=== PATIENT | female | born 1955 | race Caucasian/White ===

== ENCOUNTER → 2016-11-27 | Outpatient (CLI) | payer BC ==
[2016-11-27 13:14] LABS: BASO % 0.6 %; BASO ABS # 0.04 K/uL (0-0.2); COMPLETE YES; EOS % 3.6 %; HEMATOCRIT 42.4 % (37-47); IG% 0.3 %; LYMPH % 31.4 %; LYMPH ABS # 2.28 K/uL (1.2-3.4); MEAN CELL VOLUME 94.2 fL (80-100); MEAN CORPUSCULAR HEMOGLOBIN 32.2 pg (25-34); MEAN CORPUSCULAR HGB CONC 34.2 g/dl (32-36); MEAN PLATELET VOLUME 9.1 fL (7.4-10.4); MONO % 9.2 %; NEUT % 54.9 %; PLATELET COUNT 407 K/uL (130-400); WHITE BLOOD COUNT 7.26 K/uL (4.8-10.8)
[2016-11-27 13:35] LABS: ALT/SGPT 25 U/L (12-78); AST/SGOT 20 U/L (15-37); BLOOD UREA NITROGEN 11 mg/dl (7-18); BUN/CREATININE RATIO 12.9 (10-20); CALCIUM 9.5 mg/dl (8.5-10.1); CARBON DIOXIDE 26 mmol/L (21-32); CHLORIDE 104 mmol/L (98-107); CREATININE 0.84 mg/dl (0.60-1.20); GLUCOSE 93 mg/dl (70-99); POTASSIUM 4.4 mmol/L (3.5-5.1); SODIUM 139 mmol/L (136-145)
[2016-11-27 13:42] LABS: URINE APPEARANCE CLEAR (CLEAR); URINE BILIRUBIN NEG (NEG); URINE COLOR YELLOW; URINE NITRITE NEG (NEG); URINE SPECIFIC GRAVITY 1.008 (1.000-1.030); UROBILINOGEN NEG (NEG)
[2016-11-27 13:46] LABS: ALB/GLOB RATIO 1.3 (0.9-2); ALKALINE PHOSPHATASE 118 U/L (45-117); CHOLESTEROL 319 mg/dl (0-200); CHOLESTEROL/HDL RATIO 3.4; HDL CHOLESTEROL 95 mg/dl; LDL CHOLESTEROL CALCULATED 208 mg/dl; TRIGLYCERIDES 79 mg/dl (0-150); VERY LOW DENSITY LIPOPROT CALC 16 mg/dl
[2016-11-27 13:51] LABS: MANUAL MICROSCOPIC REQUIRED? NO; REVIEW REQ? NO
== END | disposition home or self-care (01) ==
LOC: C.LABMFLN 08:18
PROVIDERS: ATTEND Physician Assistant
DX: Z00.00 Encounter for general adult medical examination without abnormal findings (principal); I10 Essential (primary) hypertension; I73.9 Peripheral vascular disease, unspecified; E78.5 Hyperlipidemia, unspecified

== ENCOUNTER → 2017-05-08 | Outpatient (CLI) | payer BC ==
[2017-05-08 13:10] LABS: BASO % 0.7 %; BASO ABS # 0.05 K/uL (0-0.2); COMPLETE YES; HEMATOCRIT 39.6 % (37-47); IG% 0.4 %; LYMPH % 18.4 %; LYMPH ABS # 1.36 K/uL (1.2-3.4); MEAN CELL VOLUME 93.2 fL (80-100); MEAN CORPUSCULAR HEMOGLOBIN 32.2 pg (25-34); MEAN CORPUSCULAR HGB CONC 34.6 g/dl (32-36); MEAN PLATELET VOLUME 9.3 fL (7.4-10.4); MONO % 14.5 %; PLATELET COUNT 399 K/uL (130-400); RED BLOOD COUNT 4.25 M/uL (4.2-5.4)
[2017-05-08 14:02] LABS: ALT/SGPT 23 U/L (12-78); AST/SGOT 21 U/L (15-37); BLOOD UREA NITROGEN 14 mg/dl (7-18); BUN/CREATININE RATIO 17.9 (10-20); CALCIUM 9.4 mg/dl (8.5-10.1); CARBON DIOXIDE 23 mmol/L (21-32); CHLORIDE 101 mmol/L (98-107); CHOLESTEROL 298 mg/dl (0-200); CREATININE 0.76 mg/dl (0.60-1.20); GLUCOSE 100 mg/dl (70-99); POTASSIUM 3.6 mmol/L (3.5-5.1); SODIUM 134 mmol/L (136-145)
[2017-05-08 14:05] LABS: ALB/GLOB RATIO 1.1 (0.9-2); ALKALINE PHOSPHATASE 110 U/L (45-117); HDL CHOLESTEROL 100 mg/dl; LDL CHOLESTEROL CALCULATED 185 mg/dl; TRIGLYCERIDES 65 mg/dl (0-150); VERY LOW DENSITY LIPOPROT CALC 13 mg/dl
== END | disposition home or self-care (01) ==
LOC: C.LABMFLN 09:28
PROVIDERS: ATTEND Physician Assistant
DX: E55.9 Vitamin D deficiency, unspecified (principal); I10 Essential (primary) hypertension; E78.5 Hyperlipidemia, unspecified

== ENCOUNTER → 2017-10-24 | Outpatient (CLI) | payer BC ==
[2017-10-24 16:52] LABS: ALBUMIN 4.2 gm/dl (3.4-5.0); TOTAL PROTEIN 7.8 gm/dl (6.4-8.2)
== END | disposition home or self-care (01) ==
LOC: C.LABMFLN 10:10
PROVIDERS: ATTEND Physician Assistant
DX: E78.5 Hyperlipidemia, unspecified (principal)

== ENCOUNTER 2023-03-16 05:30 | Inpatient (IN) ==
[2023-03-16] MEDS ORDERED: CEFAZOLIN 2,000 MG/15 ML SYR IV SCH (06:00)
[2023-03-16] MEDS ORDERED: SODIUM CHLORIDE 0.9% 1,000 ML IV SCH (06:00)
[2023-03-16 07:26] LABS: Creatinine Clr Calc Pharmacy 35.4 ml/min; Est GFR (African American) 62.4 ml/min; Est GFR (Non-African American) 53.8 ml/min
--- NOTE | 2023-03-16 07:49 | History & Physical Report ---
Date of Service March 16, 2023 Assessment & Plan (1) Aortoiliac occlusive disease: Plan: Patient admitted for arteriography with possible intervention. I have discussed the risks options and benefits of the procedure with the patient. The patient understands the risks options and benefits and agrees to the procedure. History of Present Illness Chief Complaint: aortoiliac occlusive disease Primary Care Provider: Manjula Godoy DO Ms. Lemon is a middle-aged female who presents to clinic today for a follow- up visit regarding her history of aortoiliac occlusive disease. As you may remember the patient underwent right external iliac artery and SFA stenting in 2010, and then underwent aortogram with PSYCH NURSE and stenting of her left common iliac and external iliac arteries in 2016. Patient states that she has overall been doing generally well since being seen here last. She states that her left knee bothers her chronically since she had a severe injury to that area years ago. She states that if she is on her legs for any period of time she has severe fatigue and tiredness which develops in her left thigh and even into her calf. She has similar symptoms in the right but these are not limiting. She states she is normally able to complete her normal daily activities, but finds that she needs to stop when ambulating due to her left leg discomfort and fatigue. She is it is worse if she is going uphill, and somewhat easier if she is ambulating on a flat surface. She denies any rest pain, nonhealing wounds or ulcerations, discoloration of the feet or toes. Her aortoiliac ultrasound performed prior to today's appointment demonstrates a an occluded left external iliac artery stent. She has a patent left common iliac artery stent, and patent right common and external iliac artery stents without evidence of restenosis. Since her last study here 1 year ago, she now has occlusion of the left external iliac artery stent. Her carotid ultrasound performed prior to today's appointment demonstrates 60 to 69% stenosis of her bilateral internal carotid arteries, this is unchanged in comparison to previous exam performed last year. Her primary care physician's office did send us a copy of a recent CT of the chest that was done at an outside facility which demonstrates dilation of her ascending aorta measuring 3.9 cm. Allergies Allergy/AdvReac Type Severity Reaction Status Date / Time egg AdvReac Intermediate Diarrhea Verified 03/16/23 05:51 bupropion AdvReac hives Verified 03/16/23 05:51 [From Wellbutrin SR] metronidazole [From Flagyl] AdvReac Verified 03/16/23 05:51 bandaides Allergy Uncoded 03/16/23 05:51 Home Medications Medication Instructions Recorded Confirmed Type omega 4-emk-pex-fish oil 1,000 mg 1 cap PO DAILY 11/07/21 03/16/23 History (120 mg-180 mg) capsule (Fish Oil) docusate sodium 100 mg capsule 100 mg PO BID PRN Constipation 03/28/22 03/16/23 History Over Night Pulse OX #1 ea 09/05/22 09/28/22 Rx fexofenadine 180 mg tablet 180 mg PO DAILY #30 tabs 09/28/22 03/16/23 Rx albuterol sulfate 90 mcg/actuation 2 puff inhalation QID #3 Inhalers 01/16/23 03/16/23 Rx aerosol inhaler amiloride 5 mg tablet 10 mg PO DAILY #180 tabs 01/16/23 03/16/23 Rx azelastine 137 mcg (0.1 %) nasal 2 spray intranasal BID #3 BTLS 01/16/23 03/16/23 Rx spray aerosol clopidogrel 75 mg tablet 75 mg PO DAILY #90 tabs 01/16/23 03/16/23 Rx coenzyme Q10 100 mg capsule (Co 100 mg PO DAILY #90 caps 01/16/23 03/16/23 Rx Q-10) fluticasone propionate 50 1 spray intranasal DAILY PRN 01/16/23 03/16/23 Rx mcg/actuation nasal allergy symptoms #3 BTLS spray,suspension potassium chloride 20 mEq 20 meq PO DAILY #90 tabs 01/16/23 03/16/23 Rx tablet,extended release rosuvastatin 40 mg tablet 40 mg PO DAILY #90 tabs 01/16/23 03/16/23 Rx sodium chloride 1 gram tablet 1,000 mg PO BID #180 tabs 01/16/23 03/16/23 Rx umeclidinium 62.5 mcg-vilanterol 1 inh inhalation DAILY #3 Inhalers 01/16/23 03/16/23 Rx 25 mcg/actuation powdr for inhalation (Anoro Ellipta) carvedilol 3.125 mg tablet 3.125 mg PO BID #180 tabs 06/21/23 08/18/23 Rx sertraline 25 mg tablet 25 mg PO DAILY #90 tabs 02/15/23 03/16/23 Rx Past Med/Surg History Medical History Abnormal findings on imaging test Acute respiratory failure Alcohol use Allergic rhinitis Anxiety Chronic GERD Chronic kidney disease, stage 3a Coronary artery calcification History of malignant neoplasm Hyperlipidemia Hypertension Pericardial effusion with cardiac tamponade Pericarditis Peripheral vascular disease Pleural effusion Tachycardia Tobacco abuse Vitamin D deficiency Surgical History History of hysterectomy History of knee surgery History of tonsillectomy Status post insertion of iliac artery stent BILATERAL Family History Brother Alcohol abuse Bipolar disorder Mother Bipolar disorder Father Bipolar disorder Colorectal cancer Myocardial infarction Denies family history of Ovarian cancer Prostate cancer Breast cancer Social History Smoking Status: Current every day smoker Second Hand Exposure: Yes; Do You Dip or Chew Tobacco: No; Hx Alcohol Use: Yes Hx Substance Use: No Preferred Language: Indonesian Visual Impairment: No Limitations Hearing Ability: Normal marital status: Current Living Situation: Spouse current occupational status: employed other: [employer] Childhood Exposure to Second-Hand Smoke: Yes Dental Care, Regularly: Yes Review of Systems All systems reviewed & are unremarkable except as noted in HPI & below Physical Exam Physical Exam: Constitutional: In general patient is a healthy-appearing well-nourished well- developed middle-aged female no distress. She is alert and oriented without any focal deficits. Her carotids do not demonstrate a bruit. Her heart is regular, her lungs are decreased significantly but clear. Her abdomen is soft nontender some active bowel sounds all 4 quadrants. Her left femoral and distal pulses are nonpalpable. Her right femoral pulse is +2, her right DP is +1. Her toes demonstrate brisk capillary refill and no sign of distal ischemia. Results & Data Vital Signs (Past 12 Hours) Vital Signs Temp Pulse Resp BP Pulse Ox O2 Del Method 03/16/23 06:00 36.8 C 77 18 163/95 H 98 Room Air
--- NOTE | 2023-03-16 07:50 | Pre Anesthesia Assessment ---
Date of Service March 16, 2023 Pre Sedation Assessment Vital Signs Temp Pulse Resp BP Pulse Ox O2 Del Method 03/16/23 06:00 36.8 C 77 18 163/95 H 98 Room Air Cardiovascular RRR, no murmur, no edema Respiratory + respiratory effort normal Pre-Sedation Airway Assessment Smoking Status: Current every day smoker Hx Sleep Apnea: No Short, Thick Neck: No Thyromental Distance: > or= 3.5 Finger Breadths Oral Cavity: + WNL Mallampati Class: III ASA: ASA2 NPO Status Date of Last Intake of Fluids: 03/15/23 Time of Last Intake of Fluids: 21:00 Date of Last Intake of Solid Food: 03/15/23 Time of Last Intake of Solid Foods: 21:00 Procedure Planning Contraindications for Sedation: none Current Medications Reviewed: Yes Notes The planned sedation has been discussed with the patient. Informed Consent was obtained. I have identified the patient, determined the appropriateness of sedation and have assessed the patient immediately prior to the procedure. All medicine(s) and interventions are by my order.
[2023-03-16] MEDS ORDERED: LIDOCAINE 1% LOCAL 20 ML VIAL ONE ×2 (08:00→10:02)
[2023-03-16] MEDS ORDERED: MIDAZOLAM HCL 1 MG/ML 2ML VIAL ONE ×2 (08:00→11:10)
[2023-03-16] MEDS ORDERED: fentaNYL citrate PF 100 MCG/2 ML VIAL ONE ×4 (08:00→13:15)
[2023-03-16] MEDS ORDERED: HEPARIN SOD (PORCINE) 1000 UNIT/ML ONE (08:00)
[2023-03-16] MEDS ORDERED: VISIPAQUE IV PRN (09:52)
[2023-03-16] MEDS ORDERED: BUPIVACAINE/EPINEPHRINE 0.5% MPF 1:200,000 30 ML VIAL ONE (10:02)
[2023-03-16] MEDS ORDERED: ceFAZolin 330 MG/ML 1 GM VIAL ONE ×2 (10:03→11:52)
[2023-03-16] MEDS ORDERED: THROMBIN 5000 UNITS KIT ONE (10:03)
[2023-03-16] MEDS ORDERED: GELATIN SPONGE SZ 100 ONE (10:03)
--- NOTE | 2023-03-16 10:17 | Anesthesiology Consultation ---
Date of Service March 16, 2023 Assessment & Plan (1) Aortoiliac occlusive disease: Plan anesthetic plan converted from moderate sedation to GA with anesthesiology involvement during procedure d/t urgent findings on angiogram Chart Review Chart Review: Acceptable Risk for Surgery and Patient NOT seen in Pre Admission Testing Consults Requested none ASA [id number] Proposed Anesthesia Anesthesia Type: General Risk / Benefits Reviewed With: PT / POA / Parent / Guardian, Accepts Plan (verbal consent obtained from patient after brief discussion with patient intra- procedure. ) and Informed Consent Obtained (d/t emergent nature of procedure informed consent not formally obtained. patient voiced understanding of plan. ) History Surgery Operation Date: 03/16/23 08:00 Proposed Procedures p Bilateral Iliac Angiogram W/ Intervention(Bilateral) - Honorio Olmos MD procedure converted to possible endarterectomy/embolectomy after angiogram in progress. Dr. Olmos requested GA urgently. Height/Weight Height: 4 ft 11 in Weight: 44.2 kg Allergies Allergy/AdvReac Type Severity Reaction Status Date / Time egg AdvReac Intermediate Diarrhea Verified 03/16/23 05:51 bupropion AdvReac hives Verified 03/16/23 05:51 [From Wellbutrin SR] metronidazole [From Flagyl] AdvReac Verified 03/16/23 05:51 bandaides Allergy Uncoded 03/16/23 05:51 Medications Home Medications Medication Instructions Recorded Confirmed Last Taken omega 8-khr-iiv-fish oil 1,000 mg 1 cap PO DAILY 11/07/21 03/16/23 02/12/23 (120 mg-180 mg) capsule (Fish Oil) docusate sodium 100 mg capsule 100 mg PO BID PRN Constipation 03/28/22 03/16/23 03/15/23 09:00 Over Night Pulse OX #1 ea 09/05/22 09/28/22 Unknown fexofenadine 180 mg tablet 180 mg PO DAILY #30 tabs 09/28/22 03/16/23 03/15/23 09:00 albuterol sulfate 90 mcg/actuation 2 puff inhalation QID #3 Inhalers 01/16/23 03/16/23 03/15/23 21:00 aerosol inhaler amiloride 5 mg tablet 10 mg PO DAILY #180 tabs 01/16/23 03/16/23 03/15/23 21:00 azelastine 137 mcg (0.1 %) nasal 2 spray intranasal BID #3 BTLS 01/16/23 03/16/23 03/15/23 21:00 spray aerosol clopidogrel 75 mg tablet 75 mg PO DAILY #90 tabs 01/16/23 03/16/23 03/16/23 04:30 coenzyme Q10 100 mg capsule (Co 100 mg PO DAILY #90 caps 01/16/23 03/16/2303/15 09:00 Q-10) fluticasone propionate 50 1 spray intranasal DAILY PRN 01/16/23 03/16/2302/27 21:00 mcg/actuation nasal allergy symptoms #3 BTLS spray,suspension potassium chloride 20 mEq 20 meq PO DAILY #90 tabs 01/16/23 03/16/23 03/15/23 09:00 tablet,extended release rosuvastatin 40 mg tablet 40 mg PO DAILY #90 tabs 01/16/23 03/16/23 03/16/23 04:30 sodium chloride 1 gram tablet 1,000 mg PO BID #180 tabs 01/16/23 03/16/23 03/15/23 09:00 umeclidinium 62.5 mcg-vilanterol 1 inh inhalation DAILY #3 Inhalers 01/16/23 03/16/23 03/12/23 25 mcg/actuation powdr for inhalation (Anoro Ellipta) carvedilol 3.125 mg tablet 3.125 mg PO BID #180 tabs 01/17/23 03/16/23 03/16/23 04:30 sertraline 25 mg tablet 25 mg PO DAILY #90 tabs 02/15/23 03/16/23 03/15/23 09:00 Active Medications Generic Name Dose Route Start Last Admin Trade Name Freq PRN Reason Stop Dose Admin Sodium Chloride 1,000 mls @ 100 mls/hr 03/16/23 06:00 03/16/23 07:53 Nss 1000ml IV 03/16/23 15:59 Infused .Q10H MOLLY Infusion Cefazolin Sodium 2,000 mg in 15 mls @ 3.75 mls/min 03/16/23 06:00 03/16/23 07:49 Ancef 2000mg IV 03/16/23 16:00 3.75 mls/min PREOP MOLLY Administration Protocol Iodixanol 40 ml 03/16/23 09:52 03/16/23 09:56 Visipaque IV 03/20/23 09:51 40 ml UD PRN Administration Interaction Checking NPO Date Last Intake of Fluids: 03/15/23 Time Last Intake of Fluids: 21:00 Last Intake of Fluids Comment: 0430 sip of water for meds Date Last Intake of Solids: 03/15/23 Time Last Intake of Solids: 18:00 Past Medical History Medical History Abnormal findings on imaging test Acute respiratory failure Alcohol use Allergic rhinitis Anxiety Chronic GERD Chronic kidney disease, stage 3a Coronary artery calcification History of malignant neoplasm Hyperlipidemia Hypertension Pericardial effusion with cardiac tamponade Pericarditis Peripheral vascular disease Pleural effusion Tachycardia Tobacco abuse Vitamin D deficiency Past Family History Family History Brother Alcohol abuse Bipolar disorder Mother Bipolar disorder Father Bipolar disorder Colorectal cancer Myocardial infarction Denies family history of Ovarian cancer Prostate cancer Breast cancer Past Surgical History Surgical History History of hysterectomy History of knee surgery History of tonsillectomy Status post insertion of iliac artery stent BILATERAL Social History Smoking Status: Current every day smoker tobacco type: cigarettes Do You Dip or Chew Tobacco: No Hx Alcohol Use: Yes Hx Substance Use: No Physical Exam Vital Signs Last Vital Signs Temp 36.8 C 03/16/23 06:00 Pulse 82 03/16/23 09:50 Resp 18 03/16/23 09:50 BP 176/80 H 03/16/23 09:50 Pulse Ox 100 03/16/23 09:50 O2 Del Method Oxymask 03/16/23 09:50 O2 Flow Rate 4 03/16/23 09:50 Testing Laboratory Results 03/16/23 05:49
--- NOTE | 2023-03-16 10:18 | Anesthesiology Consultation ---
Date of Service March 16, 2023 History Surgery Operation Date: 03/16/23 08:00 Proposed Procedures p Bilateral Iliac Angiogram W/ Intervention(Bilateral) - Honorio Olmos MD Height/Weight Height: 4 ft 11 in Weight: 44.2 kg Allergies Allergy/AdvReac Type Severity Reaction Status Date / Time egg AdvReac Intermediate Diarrhea Verified 03/16/23 05:51 bupropion AdvReac hives Verified 03/16/23 05:51 [From Wellbutrin SR] metronidazole [From Flagyl] AdvReac Verified 03/16/23 05:51 bandaides Allergy Uncoded 03/16/23 05:51 Medications Home Medications Medication Instructions Recorded Confirmed Last Taken omega 5-squ-nnl-fish oil 1,000 mg 1 cap PO DAILY 11/07/21 03/16/23 02/12/23 (120 mg-180 mg) capsule (Fish Oil) docusate sodium 100 mg capsule 100 mg PO BID PRN Constipation 03/28/22 03/16/23 03/15/23 09:00 Over Night Pulse OX #1 ea 09/05/22 09/28/22 Unknown fexofenadine 180 mg tablet 180 mg PO DAILY #30 tabs 09/28/22 03/16/23 03/15/23 09:00 albuterol sulfate 90 mcg/actuation 2 puff inhalation QID #3 Inhalers 01/16/23 03/16/23 03/15/23 21:00 aerosol inhaler amiloride 5 mg tablet 10 mg PO DAILY #180 tabs 01/16/23 03/16/23 03/15/23 21:00 azelastine 137 mcg (0.1 %) nasal 2 spray intranasal BID #3 BTLS 01/16/23 03/16/23 03/15/23 21:00 spray aerosol clopidogrel 75 mg tablet 75 mg PO DAILY #90 tabs 01/16/23 03/16/23 03/16/23 04:30 coenzyme Q10 100 mg capsule (Co 100 mg PO DAILY #90 caps 01/16/23 03/16/23 03/15/23 09:00 Q-10) fluticasone propionate 50 1 spray intranasal DAILY PRN 01/16/23 03/16/23 03/15/23 21:00 mcg/actuation nasal allergy symptoms #3 BTLS spray,suspension potassium chloride 20 mEq 20 meq PO DAILY #90 tabs 01/16/23 03/16/23 03/15/23 09:00 tablet,extended release rosuvastatin 40 mg tablet 40 mg PO DAILY #90 tabs 01/16/23 03/16/23 03/16/23 04:30 sodium chloride 1 gram tablet 1,000 mg PO BID #180 tabs 01/16/23 03/16/23 03/15/23 09:00 umeclidinium 62.5 mcg-vilanterol 1 inh inhalation DAILY #3 Inhalers 01/16/23 03/16/23 03/12/23 25 mcg/actuation powdr for inhalation (Anoro Ellipta) carvedilol 3.125 mg tablet 3.125 mg PO BID #180 tabs 01/17/23 03/16/23 03/16/23 04:30 sertraline 25 mg tablet 25 mg PO DAILY #90 tabs 02/15/23 03/16/23 03/15/23 09:00 Active Medications Generic Name Dose Route Start Last Admin Trade Name Freq PRN Reason Stop Dose Admin Sodium Chloride 1,000 mls @ 100 mls/hr 03/16/23 06:00 03/16/23 07:53 Nss 1000ml IV 03/16/23 15:59 Infused .Q10H MOLLY Infusion Cefazolin Sodium 2,000 mg in 15 mls @ 3.75 mls/min 03/16/23 06:00 03/16/23 07:49 Ancef 2000mg IV 03/16/23 16:00 3.75 mls/min PREOP MOLLY Administration Protocol Iodixanol 40 ml 03/16/23 09:52 03/16/23 09:56 Visipaque IV 03/20/23 09:51 40 ml UD PRN Administration Interaction Checking NPO Date Last Intake of Fluids: 03/15/23 Time Last Intake of Fluids: 21:00 Last Intake of Fluids Comment: 0430 sip of water for meds Date Last Intake of Solids: 03/15/23 Time Last Intake of Solids: 18:00 Past Medical History Medical History Abnormal findings on imaging test Acute respiratory failure Alcohol use Allergic rhinitis Anxiety Chronic GERD Chronic kidney disease, stage 3a Coronary artery calcification History of malignant neoplasm Hyperlipidemia Hypertension Pericardial effusion with cardiac tamponade Pericarditis Peripheral vascular disease Pleural effusion Tachycardia Tobacco abuse Vitamin D deficiency Past Family History Family History Brother Alcohol abuse Bipolar disorder Mother Bipolar disorder Father Bipolar disorder Colorectal cancer Myocardial infarction Denies family history of Ovarian cancer Prostate cancer Breast cancer Past Surgical History Surgical History History of hysterectomy History of knee surgery History of tonsillectomy Status post insertion of iliac artery stent BILATERAL Social History Smoking Status: Current every day smoker tobacco type: cigarettes Do You Dip or Chew Tobacco: No Hx Alcohol Use: Yes Hx Substance Use: No Physical Exam Vital Signs Last Vital Signs Temp 36.8 C 03/16/23 06:00 Pulse 82 03/16/23 09:50 Resp 18 03/16/23 09:50 BP 176/80 H 03/16/23 09:50 Pulse Ox 100 03/16/23 09:50 O2 Del Method Oxymask 03/16/23 09:50 O2 Flow Rate 4 03/16/23 09:50 Testing Laboratory Results 03/16/23 05:49
[2023-03-16] MEDS ORDERED: LIDOCAINE 2% 2 ML VIAL/AMP(20MG/ML) INFIL ONE ×2 (10:37→11:10)
[2023-03-16] MEDS ORDERED: PROPOFOL IV EMULSION 10 MG/ML 20 ML VIAL IV ONE ×2 (10:37→11:10)
[2023-03-16] MEDS ORDERED: SURGICEL ABSORB HEMOSTAT 2IN X 14IN TOP ONE (10:45)
[2023-03-16] MEDS ORDERED: ROCURONIUM BROMIDE 10 MG/ML 5 ML VIAL IV ONE (10:45)
[2023-03-16] MEDS ORDERED: DEXAMETHASONE SOD INJ 4 MG/ML VIAL ONE (10:46)
[2023-03-16] MEDS ORDERED: ONDANSETRON INJ 2 MG/ML 2 ML VIAL ONE (10:46)
[2023-03-16] MEDS ORDERED: GLYCOPYRROLATE 0.2 MG/ML VIAL ONE ×2 (11:10→12:38)
[2023-03-16] MEDS ORDERED: SUGAMMADEX SODIUM 200 MG/2 ML VIAL IV ONE (11:13)
[2023-03-16] MEDS ORDERED: MoRPHine SULFATE 4 MG/ML 1 ML CARP\\VIAL IV PRN (11:16)
[2023-03-16] MEDS ORDERED: DOCUSATE SODIUM 100 MG CAP PO PRN (11:21)
[2023-03-16] MEDS ORDERED: FLUTICASONE PROPIONATE NA SPR 16 GM BTL PRN (11:21)
--- NOTE | 2023-03-16 11:44 | Post Operative Brief Note ---
Immediate Post Op Note v1 Date of Surgery March 16, 2023 Pre & Post Diagnosis Operation Date: 03/16/23 08:00 Pre-Op Diagnosis: Aorto Iliac Occlusive Disease Post-Op Diagnosis: Aorto Iliac Occlusive Disease I identified the patient and participated in the time-out.: Yes Procedure Operation Date: 03/16/23 08:00 Actual Procedures p Bilateral Iliac Angiogram, Percutaneous Transluminal Angioplasty of Left External Iliac Artery, Ultrasound Localization of Left Femoral Artery, Moderate Sedation [id number](Left) - Honorio Olmos MD s Right iliac thrombectomy, Left common femoral artery endarterectomy with bovine patch(Bilateral) - Honorio Olmos MD Surgeon Honorio Olmos MD Fiberglass Technician Armando,PAC Estimated Blood Loss 100 Findings Consistent with Post-Op Diagnosis Anesthesia Type General Complications none Disposition Accompanied Patient To Recovery: No Disposition: Recovery Room
[2023-03-16] MEDS ORDERED: NEOSTIGMINE METHYLSULFATE 1 MG/ML 10ML VIAL ONE (12:38)
--- NOTE | 2023-03-16 12:55 | XRay Report ---
XR pelvis 1-2V routine CLINICAL HISTORY: NEEDLE COUNT IN OR 12. TECHNIQUE: Multiple views of the pelvis were obtained. Comparison: None available at the time of this dictation. FINDINGS: Right iliac stent is seen. There are surgical selwyn. A retractor is noted in the left hemipelvis. J oint spaces are well-preserved. No soft tissue abnormality is seen. IMPRESSION: No retained needles are seen. Additional devices are seen as above. ACT 112: Negative or not required by law. Electronically signed by: Raffi Flower M.D. 03/16/2023 12:53 PM
[2023-03-16] MEDS: fentaNYL citrate PF 100 MCG/2 ML VIAL IV PRN ×4 (13:15→13:33)
[2023-03-16] MEDS ORDERED: ATROPINE SULFATE 0.1 MG/ML 10ML SYR IV PRN (13:16)
[2023-03-16] MEDS ORDERED: ONDANSETRON INJ 2 MG/ML 2 ML VIAL IV PRN (13:16)
[2023-03-16] MEDS ORDERED: PROMETHAZINE HCL 6.25 MG in SODIUM CHLORIDE 0.9% 50 ML IV PRN (13:16)
--- NOTE | 2023-03-16 13:45 | Anesthesiology Progress Note ---
Date of Service March 16, 2023 Anesthesia Post Procedure Vital Signs Vital Signs: Temp Pulse Pulse Pulse Resp BP Pulse Ox 03/16/23 13:35 78 16 182/91 H 98 03/16/23 13:25 82 16 174/74 H 96 03/16/23 13:15 75 16 177/87 H 100 03/16/23 13:08 36.1 C L 74 18 179/92 H 100 03/16/23 09:50 82 18 176/80 H 100 03/16/23 09:45 82 18 178/90 H 100 03/16/23 09:40 82 18 157/79 H 100 03/16/23 09:35 82 18 170/81 H 100 03/16/23 09:30 82 18 171/86 H 100 03/16/23 09:25 82 18 164/80 H 100 03/16/23 09:20 82 18 162/80 H 100 03/16/23 09:10 82 18 180/94 H 100 03/16/23 08:00 82 18 189/98 H 100 03/16/23 06:00 36.8 C 77 18 163/95 H 98 O2 Del Method O2 Flow Rate 03/16/23 13:35 Nasal Cannula 2 03/16/23 13:25 Nasal Cannula 2 03/16/23 13:15 Oxymask 6 03/16/23 13:08 Oxymask 6 03/16/23 09:50 Oxymask 4 03/16/23 09:45 Oxymask 4 03/16/23 09:40 Oxymask 4 03/16/23 09:35 Oxymask 4 03/16/23 09:30 Oxymask 4 03/16/23 09:25 Oxymask 4 03/16/23 09:20 Oxymask 4 03/16/23 09:10 Oxymask 4 03/16/23 08:00 Oxymask 4 03/16/23 06:00 Room Air Pain Intensity Bilateral Groin: Pain Intensity: 7 Transfer of Care Handoff Completed per policy Notes Mental Status: alert / awake / arousable and participated in evaluation Patient Amnestic to Procedure: Yes Nausea / Vomiting: adequately controlled Pain: adequately controlled Airway Patency, RR, SpO2: stable & adequate BP & HR: stable & adequate Hydration State: stable & adequate Anesthetic Complications: no major complications apparent and Pt Satisfied with anesthetic care
[2023-03-16] MEDS: oxyCODONE/ACETAMINOPHEN 5mg/325mg TAB PO PRN ×2 (14:40→20:38)
[2023-03-16] MEDS: ALBUTEROL HFA 8 GM INHALER INH SCH ×3 (15:17→22:57)
[2023-03-16] MEDS: carvediloL 3.125 MG TAB PO SCH (17:36)
[2023-03-16] MEDS: ceFAZolin 2000MG 2,000 MG/15 ML SYR IV SCH (17:37)
[2023-03-16] MEDS: AZELASTINE HCL 0.1% NASAL 200 SPRAYS/27,400 MCG BTL SCH (20:35)
[2023-03-16] MEDS: SODIUM CHLORIDE 1 GM TABLET PO SCH (20:36)
[2023-03-17] MEDS: ceFAZolin 2000MG 2,000 MG/15 ML SYR IV SCH (03:23)
[2023-03-17] MEDS: ALBUTEROL HFA 8 GM INHALER INH SCH ×2 (07:58→11:21)
[2023-03-17] MEDS: carvediloL 3.125 MG TAB PO SCH (08:07)
[2023-03-17] MEDS: SODIUM CHLORIDE 1 GM TABLET PO SCH (08:08)
[2023-03-17] MEDS: AZELASTINE HCL 0.1% NASAL 200 SPRAYS/27,400 MCG BTL SCH (08:08)
[2023-03-17] MEDS ORDERED: UMECLIDINIUM/VILANTEROL 62.5/25MCG 7 PUFFS/INHALER INH SCH (09:00)
[2023-03-17] MEDS ORDERED: ROSUVASTATIN CALCIUM 20 MG TAB PO SCH (09:00)
[2023-03-17] MEDS ORDERED: FEXOFENADINE HCL 180 MG TAB PO SCH (09:00)
[2023-03-17] MEDS ORDERED: aMILoride HCL 5 MG TAB PO SCH (09:00)
[2023-03-17] MEDS ORDERED: POTASSIUM CHLORIDE CRTAB 20 MEQ TABCR PO SCH (09:00)
[2023-03-17] MEDS ORDERED: SERTRALINE HCL 50 MG TABLET PO SCH (09:00)
[2023-03-17] MEDS ORDERED: OMEGA-3 (PURIFIED FISH OIL) 1 GM CAP PO SCH (09:00)
[2023-03-17] MEDS ORDERED: CLOPIDOGREL BISULFATE 75 MG TAB PO SCH (09:00)
--- NOTE | 2023-03-17 10:06 | Surgery Progress Note ---
Date of Service March 17, 2023 Assessment & Plan (1) Aortoiliac occlusive disease: Plan: POD #1 from thrombectomy of right iliac artery, BRAILLE CODER of left external iliac artery, and left common femoral endart with patch. Doing extremely well. Ambulating without any claudication in either leg. D/C today. Admission and Anticipated Discharge Date Admission Date: March 16, 2023 Subjective No complaints. Claims she is walking in [place] with no pain at all in her legs. Much improved. Physical Exam Constitutional: WD/WN, vitals as above Respiratory: normal respiratory effort; no respiratory distress Cardiovascular: Rate/Rhythm: regular rate and regular rhythm Extremities: normal capillary refill good dopplers both feet Skin: + incision (both groins with prevena in place, no swelling) Neurologic: CN's II-XI intact bilaterally and moves all extremities Motor/Sensory: no sensory deficit Psychiatric: Orientation: alert and oriented x 3 Results & Data Vital Signs (Past 12 Hours) Vital Signs Temp Pulse Resp BP Pulse Ox O2 Del Method O2 Flow Rate 03/17/23 07:58 82 16 97 Room Air 03/17/23 05:49 37 C 87 16 151/70 H 98 Nasal Cannula 2 03/17/23 03:23 37.1 C 90 18 137/76 98 Nasal Cannula 2 03/16/23 22:47 36.8 C 88 16 121/72 99 Nasal Cannula 2
--- NOTE | 2023-03-17 10:22 | Discharge Summary ---
Date of Service March 17, 2023 Admission HPI Per Admitting Provider Ms. Lemon is a middle-aged female who presents to clinic today for a follow- up visit regarding her history of aortoiliac occlusive disease. As you may remember the patient underwent right external iliac artery and SFA stenting in 2010, and then underwent aortogram with FREIGHT ENGINEER and stenting of her left common iliac and external iliac arteries in 2016. Patient states that she has overall been doing generally well since being seen here last. She states that her left knee bothers her chronically since she had a severe injury to that area years ago. She states that if she is on her legs for any period of time she has severe fatigue and tiredness which develops in her left thigh and even into her calf. She has similar symptoms in the right but these are not limiting. She states she is normally able to complete her normal daily activities, but finds that she needs to stop when ambulating due to her left leg discomfort and fatigue. She is it is worse if she is going uphill, and somewhat easier if she is ambulating on a flat surface. She denies any rest pain, nonhealing wounds or ulcerations, discoloration of the feet or toes. Her aortoiliac ultrasound performed prior to today's appointment demonstrates a an occluded left external iliac artery stent. She has a patent left common iliac artery stent, and patent right common and external iliac artery stents without evidence of restenosis. Since her last study here 1 year ago, she now has occlusion of the left external iliac artery stent. Her carotid ultrasound performed prior to today's appointment demonstrates 60 to 69% stenosis of her bilateral internal carotid arteries, this is unchanged in comparison to previous exam performed last year. Her primary care physician's office did send us a copy of a recent CT of the chest that was done at an outside facility which demonstrates dilation of her ascending aorta measuring 3.9 cm. Admission Exam Per Admitting Provider Constitutional: In general patient is a healthy-appearing well-nourished well- developed middle-aged female no distress. She is alert and oriented without any focal deficits. Her carotids do not demonstrate a bruit. Her heart is regular, her lungs are decreased significantly but clear. Her abdomen is soft nontender some active bowel sounds all 4 quadrants. Her left femoral and distal pulses are nonpalpable. Her right femoral pulse is +2, her right DP is +1. Her toes demonstrate brisk capillary refill and no sign of distal ischemia. Principal Diagnosis Aortoiliac occlusive disease Discharge Exam Constitutional: In general patient is a healthy-appearing well-nourished well-developed middle-aged female no distress. She is alert and oriented without any focal deficits. Her carotids do not demonstrate a bruit. Her heart is regular, her lungs are decreased significantly but clear. Her abdomen is soft nontender some active bowel sounds all 4 quadrants. Her left femoral and distal pulses are nonpalpable. Her right femoral pulse is +2, her right DP is +1. Her toes demonstrate brisk capillary refill and no sign of distal ischemia. Constitutional WD/WN, vitals as above ENMT Mallampati Class: III Respiratory normal respiratory effort; no respiratory distress Cardiovascular RRR, no murmur, no edema Rate/Rhythm: regular rate and regular rhythm Extremities: normal capillary refill Skin + incision (both groins with prevena in place, no swelling) Neurologic CN's II-XI intact bilaterally and moves all extremities Motor/Sensory: no sensory deficit Psychiatric Orientation: alert and oriented x 3 Discharge Data Allergies Allergy/AdvReac Type Severity Reaction Status Date / Time egg AdvReac Intermediate Diarrhea Verified 03/16/23 05:51 bupropion AdvReac hives Verified 03/16/23 05:51 [From Wellbutrin SR] metronidazole [From Flagyl] AdvReac Verified 03/16/23 05:51 bandaides Allergy Uncoded 03/16/23 05:51 Procedures Performed Operation Date: 03/16/23 08:00 Actual Procedures s Bilateral Iliac Angiogram, Percutaneous Transluminal Angioplasty of Left External Iliac Artery, Ultrasound Localization of Left Femoral Artery, Moderate Sedation [id number](Left) - Honorio Olmos MD p Right iliac thrombectomy, Left common femoral artery endarterectomy with bovine patch(Bilateral) - Honorio Olmos MD Ordered Studies 03/16/23 07:25 EV angio LE BI Routine US EV guide vascular access Routine Hospital Course (1) Aortoiliac occlusive disease: POD #1 from thrombectomy of right iliac artery, FREIGHT ENGINEER of left external iliac artery, and left common femoral endart with patch. Doing extremely well. Ambulating without any claudication in either leg. D/C today. Total Time Total Time Spent Total Time Spent (In Minutes): 0 Discharge Plan Discharge Items Patient Disposition: Home - Self-Care Reason For Visit: Aorto Iliac Occlusive Disease Discharge Diagnosis: Aorto iliac occlusive disease Activity: Per Instructions section Non-emergency contact: Surgeon Call non-emergency contact if: your temperature is above 101.5, your wound has increased redness, your wound has increased drainage and your wound pain has increased Follow-up/Referrals: Manjula Godoy DO [Primary Care Provider] - Diet: Heart Healthy Addtl Attending Provider Instructions: ACTIVITY RECOMMENDATIONS: Do not change groin dressings. When suction stops or next remove the dressings and dispose of the entire device Place small dressing over wounds at that time if there is any drainage. Keep prevena dressings dry. SPECIAL CARE INSTRUCTIONS: Call your doctor if: * Temperature above 101 degrees * Pain not relieved by pain medicine ordered * There is increased drainage or redness from any incision * You have any unanswered questions or concerns. Call [phone] to schedule a follow up appointment if one not already scheduled. Pending Studies at Discharge: No Stand-Alone Forms: My [facility] [employer], Smoking Cessation Medications and DC Order Prescriptions: New oxycodone-acetaminophen [Percocet] 5-325 mg tablet 1 tab PO Q6H PRN (Reason: pain) Qty: 30 0RF Continued sodium chloride 1 gram tablet 1,000 mg PO BID Qty: 180 3RF albuterol sulfate 90 mcg/actuation HFA aerosol inhaler 2 puff inhalation QID Qty: 3 3RF amiloride 5 mg tablet 10 mg PO DAILY Qty: 180 1RF azelastine 137 mcg (0.1 %) aerosol,spray 2 spray intranasal BID Qty: 3 3RF Rx Instructions: administer into each nostril clopidogrel 75 mg tablet 75 mg PO DAILY Qty: 90 3RF coenzyme Q10 [Co Q-10] 100 mg capsule 100 mg PO DAILY Qty: 90 3RF fluticasone propionate 50 mcg/actuation spray,suspension 1 spray intranasal DAILY PRN (Reason: allergy symptoms) Qty: 3 3RF rosuvastatin 40 mg tablet 40 mg PO DAILY Qty: 90 1RF potassium chloride 20 mEq tablet extended release 20 meq PO DAILY Qty: 90 1RF Anoro Ellipta 62.5-25 mcg/actuation blister with device 1 inh inhalation DAILY Qty: 3 3RF carvedilol 3.125 mg tablet 3.125 mg PO BID Qty: 180 1RF Rx Instructions: must administer with a meal/food sertraline 25 mg tablet 25 mg PO DAILY Qty: 90 1RF (DME) Over Night Pulse OX Misc See Rx Instructions .MEDSUPPLY Qty: 1 0RF Rx Instructions: Room Air fexofenadine 180 mg tablet 180 mg PO DAILY Qty: 30 0RF omega 5-exi-kca-fish oil [Fish Oil] 1,000 mg (120 mg-180 mg) capsule 1 cap PO DAILY docusate sodium 100 mg capsule 100 mg PO BID PRN (Reason: Constipation) Discharge Orders: Discharge Order (Routine); Ordered 03/17/23 Ordered By: Honorio Olmos Admission Data Admit Date/Time: 03/16/23 11:20 Attending Provider: Honorio Olmos Admit Provider: Honorio Olmos Primary Care Provider: Manjula Godoy
[2023-03-17 10:40] LABS: BUN Creatinine Ratio 15.6 (10-20); Calcium 8.7 mg/dl (8.6-10.3); Creatinine Clr Calc Pharmacy 28.3 ml/min; Est GFR (African American) 47.6 ml/min; Est GFR (Non-African American) 41.1 ml/min; Potassium 4.6 mmol/L (3.5-5.1)
[2023-03-17 10:44] LABS: Basophils # (auto) 0.13 K/uL (0-0.2); Eosinophils # (auto) 0.07 K/uL (0-0.50); Eosinophils % (auto) 0.5 %; Hematocrit (blood only) 25.3 % (37.0-47.0); Hemoglobin 8.7 g/dl (12.0-16.0); Immature Granulocytes # (auto) 0.05 K/uL (0.01-0.20); Immature Granulocytes % (auto) 0.4 %; Lymphocytes # (auto) 1.91 K/uL (1.2-3.4); Mean Corpuscular Hgb Conc 34.4 g/dL (32.0-36.0); Mean Corpuscular Volume 98.8 fL (80.0-100.0); Mean Platelet Volume 9.5 fL (9.4-12.4); Monocytes # (auto) 1.35 K/uL (0.11-0.59); Monocytes % (auto) 10.6 %; Neutrophils # (auto) 9.24 K/uL (1.40-6.50); Neutrophils % (auto) 72.5 %; Platelet Count 337 K/uL (130-400); RDW Coefficient of Variation 12.9 % (11.5-14.5); RDW Standard Deviation 45.9 fL (36.4-46.3); Red Blood Count 2.56 M/uL (4.20-5.40); White Blood Count 12.75 K/ul (4.8-10.8)
--- NOTE | 2023-04-03 10:11 | Operative Report ---
Post Operative Report Pre & Post Diagnosis Operation Date: 03/16/23 08:00 Pre-Op Diagnosis: Aorto Iliac Occlusive Disease Post-Op Diagnosis: Aorto Iliac Occlusive Disease I identified the patient and participated in the time-out.: Yes Procedure Operation Date: 03/16/23 08:00 Actual Procedures s Bilateral Iliac Angiogram, Percutaneous Transluminal Angioplasty of Left External Iliac Artery, Ultrasound Localization of Left Femoral Artery, Moderate Sedation [id number](Left) - Honorio Olmos MD p Right iliac thrombectomy, Left common femoral artery endarterectomy with bovine patch(Bilateral) - Honorio Olmos MD Surgeon Honorio Olmos MD Stiff Leg Operator Armando,PAC Estimated Blood Loss 100 Findings Consistent with Post-Op Diagnosis Specimens none Anesthesia Type General Complications none Disposition Accompanied Patient To Recovery: No Disposition: Recovery Room Indications This is a 67-year-old female who developed significant claudication left lower extremity. She had iliac stents placed on both sides in the past. She is admitted for arteriography and possible intervention. Ultrasound showed near occlusion of the left external iliac artery. I have discussed the risks options and benefits of the procedure with the patient. The patient understands the risks options and benefits and agrees to the procedure. Description of Procedure The patient was taken to the angiogram suite placed supine position. Both groins were prepped draped in sterile manner. Patient was identified and timeout was performed. Ultrasound was used to locate the left common femoral artery. It was patent with sluggish flow seen. Under ultrasound the left common femoral artery was punctured and 5 Green[place]ic sheath inserted. Using 035 wire and the quick cross catheter the lesion was traversed. The wire was placed in the aorta. Hand-injection showed the right iliac system to be patent. Left side had a near occlusion of the external iliac artery and its entire length. The common femoral and right side was patent. Superficial femoral artery appeared to be occluded at its origin with a patent profundofemoral artery. We then inserted a 5 x 40 balloon. We dilated the left external iliac artery. An injection done at the end showed what appeared to be occlusion of the left common femoral artery and a clots in the distal common iliac artery on the right side. It was decided at this time to convert to an open procedure. The patient was anesthetized under general anesthesia. Cutdowns were made in both groins. The right common femoral was identified. It was clamped proximal distally. A transverse arteriotomy was performed. Using #4 Fog[place], clot was retrieved from the common iliac artery on the right side. Excellent flow was seen. Good b ackflow was noted. The arteriotomy was then closed with interrupted 6-0 Prolene's clamps removed and excellent flow was seen through the femoral artery. On the left side the common femoral, proximal distally. We decided to do a longitudinal arteriotomy due to the amount of plaque that was of the artery. We passed the Dexter proximal distally. Clot was removed from the proximal iliac artery as well as a small clot in the distal femoral artery. Endarterectomy performed of the plaque that was present with nearly occluding the common femoral artery good breakoff points were seen proximal distally. We did use 1 tacking stitch distally on the plaque. We then closed the arteriotomy with a bovine patch with a running 5-0 Prolene suture in the usual vascular fashion. Prior to completing the closure backbleeding and forward bleeding was allowed to occur. The final few sutures were placed and securely tied. Clamps were then removed. Excellent flow was seen to the femoral artery distally to the patch. Good signals were heard in the profundofemoral artery and hemostasis was then obtained. After active hemostasis was noted the wounds the wounds were closed in usual fashion using running 2-0 Vicryl suture for the femoral sheath 3-0 Vicryl suture for the subcutaneous layer and selwyn for the skin. Prevena dressings are placed on the wounds.The patient left the operation room in satisfactory condition and tolerated the procedure well. All needle and sponge counts were correct at the end of the procedure. Joanne Trujillo Pac assisted due to lack of resident availability and was necessary for positioning, draping, retraction, wound closure deep layers, subcutaneous tissue, and skin closure and was necessary for assisting with the case. I attest to the content of the Intraoperative Record and any orders documented therein. Any exceptions are noted below.
== END 2023-03-17 11:53 | disposition home or self-care (01) | DRG 272 ==
LOC: ASU 05:30 → 3N 11:20